=== PATIENT | female | born 1980 | race Asian ===

== ENCOUNTER 2017-03-03 16:41 | Emergency (ER) | payer MEDICAID, OTHER ==
--- NOTE | 2017-03-03 18:14 | ED Physician Documentation ---
PD HPI HEAD INJURY - Stated complaint Stated Complaint: LIP LAC - Chief complaint Chief Complaint: Heent - History obtained from History obtained from: Patient - History of Present Illness Mechanism of head injury: Blow (her child popped up his head and struck her in the lip, with laceration to lower lip. Bled well initially and is stopped here. No dental injury.) Where head injury occurred: Home Timing - onset: Today Location of injury: Other (lower lip) Associated symptoms: No: LOC, AMS, Nausea / vomiting Symptoms worsen with: Palpation Similar symptoms before: Has not had sx before Review of Systems Throat: reports: Oral lesions / sores. denies: Dental pain / toothache, Sore throat PD PAST MEDICAL HISTORY - Past Medical History Past Medical History: Yes Neuro: None Psych: Anxiety Derm: Psoriasis - Past Surgical History Past Surgical History: Yes - Present Medications Home Medications: Ambulatory Orders Medication Instructions Recorded Confirmed Propranolol [Inderal] 80 mg PO DAILY 03/03/17 03/03/17 buPROPion [Wellbutrin Sr] 0 mg PO DAILY 03/03/17 03/03/17 - Allergies Allergies/Adverse Reactions: Allergies Allergy/AdvReac Type Severity Reaction Status Date / Time No Known Drug Allergies Allergy Verified 03/03/17 16:59 - Social History Does the pt smoke?: No Smoking Status: Never smoker - Immunizations Immunizations are current?: Yes PD ED PE NORMAL - Vitals Vital signs reviewed: Yes - General General: Alert and oriented X 3, No acute distress, Well developed/nourished - HEENT HEENT: PERRL, EOMI, Dentition benign, Other (lower lip midline with 1 cm lac of mucosal side, not crossing myla border. It does not split unless pull at edges. Resting mouth position has wound closed and no noted stepoff to either side. I don't think it needs sutures. ) - Neck Neck: Supple, no meningeal sign, No bony TTP - Neuro Neuro: Alert and oriented X 3, No motor deficit, Normal speech Results - Vitals Vitals: Oxygen O2 Source Room air PD MEDICAL DECISION MAKING - ED course Complexity details: considered differential (lower lip with small lac, not across vermilion border, and not too deep. Does not need repair. ), d/w patient Departure - Departure Disposition: 01 Home, Self Care Clinical Impression: Laceration of lower lip Qualifiers: Encounter type: initial encounter Qualified Code(s): S01.511A - Laceration without foreign body of lip, initial encounter Condition: Stable Record reviewed to determine appropriate education?: Yes Instructions: ED Laceration Mouth Comments: This looks like it should heal up okay without any sutures. Apply some Vaseline or ointment a few times a day just to help keep its sealed. Tylenol or ibuprofen if needed for pain. Topical anesthetic such as Orajel are okay. Recheck if signs of infection. Discharge Date/Time: 03/03/17 18:48
[2017-03-03 18:52] VITALS: BP 132/82
== END 2017-03-03 18:48 | disposition home or self-care (01) ==
LOC: ED 16:41
DX: S01.511A Laceration without foreign body of lip, initial encounter (principal); W51.XXXA Accidental striking against or bumped into by another person, initial encounter
CPT/HCPCS: 99282; 99283